=== PATIENT | male | born 1965 ===

== ENCOUNTER 2024-07-23 10:01 | Inpatient (IN) | payer BC ==
[~2024-07-23] VITALS: Ht 180.3 cm; Wt 100.0 kg
[2024-07-23 12:03] VITALS: BP 125/85
[2024-07-23] MEDS ORDERED: Ibuprofen 600 MG Tab PO PRN (13:10)
[2024-07-23] MEDS ORDERED: LORazepam 2 MG Tab PO PRN ×3 (13:10→13:15)
[2024-07-23] MEDS ORDERED: Haloperidol 5 MG Tab PO PRN ×2 (13:10→13:15)
[2024-07-23] MEDS ORDERED: Aluminum Hydroxide 320MG/5ML 473 ML PO PRN (13:10)
[2024-07-23] MEDS ORDERED: FLU VACC TS2024-25(6MOS UP)/PF 45 MCG/0.5 ML SYRINGE IM ONE (13:15)
[2024-07-23] MEDS ORDERED: Acetaminophen 325 MG TABLET PO PRN (13:15)
[2024-07-23] MEDS ORDERED: TraZODone HCl 50 MG Tab PO PRN (13:15)
[2024-07-23] MEDS ORDERED: RisperiDONE 1 MG Tab PO PRN (13:15)
[2024-07-23] MEDS ORDERED: LAMO100 PO (13:43)
[2024-07-23] MEDS ORDERED: QUET100 PO (13:44)
[2024-07-23] MEDS ORDERED: SERT50 PO (13:44)
--- NOTE | 2024-07-23 13:46 | NUR ---
ADMIT: PT ARRIVED TO [facility] VIA SECURE TRANSPORT FROM [facility] IN [facility] [place]. ALERT, ORIENTED AND COOPERATIVE. DENIES SI, HI OR AVH. PT STATES "I HAD BEHAVIORS CONSIDERED TO BE DANGEROUS, IT WAS A REACTION TO STRESS WITH MY FAMILY". 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 STATES THAT WHAT HAPPENED TO LEAD TO COMING TO HOSPITAL IS FOGGY. STATES THAT IT STARTED AFTER HAVING INCREASED STRESS WITHIN HIS FAMILY. STATES THAT HE WAS TO SEPERATE FROM THEM AND HAS A PLAN TO DO SO. 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 REPORTS HISTORY OF BIPLOR BUT STATES THAT HE HAS NOT BEEN TAKING MEDS RECENTLY. MED LIST UPDATED PER PT IN [facility]. STATES HX OF A-FIB, STATES THAT HIS DRUM LOADER AND UNLOADER TOLD HIM HE DOES NOT NEED MEDICATION FOR IT.
--- NOTE | 2024-07-23 18:21 | NUR ---
SHIFT SUMMARY: PT ALERT, ORIENTED AND COOPERATIVE. COMPLIANT WITH CARE. DENIES SI, HI OR AVH. PT ENGAGED IN DEPT MILIEU AND VISIBLE ON UNIT.
[2024-07-23 19:51] VITALS: BP 107/77
[2024-07-23] MEDS ORDERED: QUEtiapine Fumarate 100 MG Tab PO SCH (21:00)
[2024-07-23 22:05] VITALS: BP 107/77
--- NOTE | 2024-07-24 01:00 | NUR ---
Patient sleeping, no noted behaviors or issues.
--- NOTE | 2024-07-24 04:00 | NUR ---
ASSUMED CARE FROM PRIOR SHIFT. PATIENT IS A/OX4, ABLE TO VOICE NEEDS AND HAVE MEANINGFUL CONVERSATION. HE TELLS ME HE IS "GLAD TO BE HERE", HE LET HIS FAMILY "DRIVE HIM TO THE EDGE" AND HE IS GLAD TO HAVE "A BREAK FROM THEM". HE CURRENTLY DENIES ANY SI, VH AND AH. HE WAS VISITING WITH WITH OTHER STAFF AND PATIENTS AT THE BEGINNING OF SHIFT. HE IS COMPLIANT WITH MEDICATIONS, ASSESSMENT AND CARE. HE GOES TO BED WITHOUT ENCOURAGEMENT. HE SLEEPS THROUGH THE NIGHT WITHOUT BEHAVIORS OR ISSUES. WE WILL CONTINUE TO MONINTOR EVERY 15 MINUTES FOR SAFETY.
[2024-07-24 08:04] VITALS: BP 127/90
[2024-07-24] MEDS ORDERED: LamoTRIgine 100 MG Tab PO SCH (09:00)
--- NOTE | 2024-07-24 17:47 | NUR ---
SHIFT SUMMARY: PT ALERT, ORIENTED AND COOPERATIVE. DENIED SI, HI AND AVH. COMPLIANT WITH MEDICATIONS. PT PRESENT ON THE UNIT AND ENGAGED IN DEPT MILIEU. BANDAID TO WOUND ON L ANKLE CHANGED. NO S/S OF INFECTION.
[2024-07-24 20:29] VITALS: BP 137/89
--- NOTE | 2024-07-25 04:18 | NUR ---
PATIENT WAS PACING IN THE HALLWAY AT THE BEGINNING OF THE SHIFT. HE STATED "I FEEL LIKE MICE ARE RUNNING AROUND IN MY HEAD" BUT DECLINED OFFER OF PRN FOR ANXIETY. HE APPROACHED STAFF MANY TIMES DURING THIS SHIFT. HE DID NOT WANT TO WATCH THE MOVIE IN THE GROUP ROOM, STATING "IT FEELS LIKE i COULD GET IN TROUBLE. IT FEELS LIKE STATUTORY RAPE." HE WAS CONCERNED ABOUT HIS MOTHER, HE DOES NOT KNOW, PER PATIENT, IF SHE IS AWARE OF HIS LOCATION. HE WROTE IN HIS JOURNAL AND WANTS THE SW TO SPEAK TO HIM THURSDAY REGARDING HIS JOURNAL ENTRY AND GETTING AHOLD OF HIS MOTHER. HE WAS PLEASANT AND COOPERATIVE WITH CARES, WITH UNDERLYING ANXIETY AND PARANOIA. HE HAD A HARD TIME GOING TO SLEEP, PER PATIENT, AND KEPT GETTING UP TO DISCUSS HIS CONCERNS. HE DID AGREE, AFTER A TIME, TO TRY ATIVAN, WHICH ENDED UP BEING EFFECTIVE AFTER AN HOUR. HE THEN WAS IN BED RESTING QUIETLY WITH EYES CLOSED AND RESPIRATIONS CONFIRMED. HE HAD NO S/SX SUICIDAL IDEATION. HE STATED, "i REALLY LIKE IT HERE".
--- NOTE | 2024-07-25 07:52 | NUR ---
WOUND CARE ABRASION TO R ANKLE NOTED IN ERROR A PRESSURE ULCER BY THIS RN IN INITIAL ADMIT ASSESSMENT. PT SHOWERED THIS AM, ABRAISION ASSESSED. NOT S/S OF INFECTION, NEW BANDAIDS APPLIED TO AREA. PT TOLERATED WELL.
[2024-07-25 08:14] VITALS: BP 119/76
--- NOTE | 2024-07-25 13:54 | NUR ---
PCI, [facility] INFORMATION: THIS RN SPOKE WITH JANNETTE THE PCI IN CHARGE OF PATIENTS CASE IN [facility]. UPDATED ON SITUATION LEADING TO HOSPITALIZATION. STATES THAT THEY WERE INITIALLY CALLED TO TALK TO PT EARLY ON 07/21. STATES THAT PT REFUSED TO SPEAK WITH THEM AT THAT TIME. STATES THAT [place] AND WAS PUSHING PEOPLE, WHICH LEAD TO HIM BEING TAKEN TO THE HOSPITAL. STATES THAT HE WAS REFERRING TO ANOTHER BEING NAMED RACHELLE WHO WAS TELLING HIM TO DO THINGS. STATES THAT PT TOLD THEM THAT IF RACHELLE TOLD HIM TO HARM SOMEONE HE WASN'T SURE IF WOULD BE ABLE TO STOP. 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 EXPRESSED FAMILY CONCERN R/T HIS MOTHER HAVING A LARGE HEMATOMA ON HER HEAD THAT WAS NOTED AFTER THE DISAGREEMENT WITH MEMBER. STATES THAT SHE TOLD THE POLICE THAT SHE STACKING WOOD WAS HIT BY A PIECE OF WOOD. SHE CONFIRMED THAT PT WORKED FOR THE [employer], HAS INCOME AND BENIFITS THROUGH THERE. PT IS SCHEDULED FOR A HEARING ON 07/28 AT 1330. [facility] SCHEDULES THESE AT THE TIME A HOLD IS PLACED. SHE PROVIDED CONTACT INFORMATION FOR PT'S ENCC WORKER WHO WILL BE THE PERSON ASSISTING WITH A SAFE DISCHARGE PLAN. SHE IS GOING TO SPEAK WITH HIS CM TO FIND OUT IF HE IS LIVING IN HIS BOAT, SHE WAS UNDERSTANDING THAT HE LIVES WITH HIS MOTHER. DISCUSSED THAT PT HAS EXPRESSED THAT HE DOES NOT WANT TO HAVE CONTACT WITH HIS FAMILY. PCI: JANNETTE, [facility]: MARLEN CARLIN,
--- NOTE | 2024-07-25 17:43 | NUR ---
SHIFT SUMMARY: PT ALERT, ORIENTED AND COOPERATIVE. COMPLIANT WITH MEDICATIONS. DENIES SI, HI OR AVH. HAS BEEN VISIBLE ON THE UNIT, ENGAGED IN AM GROUP BUT DECLINED AFTERNOON GROUPS.
[2024-07-25 23:31] VITALS: BP 115/87
--- NOTE | 2024-07-25 23:52 | NUR ---
ALAN VISIBLE ON UNIT SPENDING TIME IN DAYROOM WATCHING TELEVISION AND PACING DELGADO. PT A&O X 4, APPEARS WELL GROOMED, TANGENTIAL, CALM. TOOK HS MEDS ORDERED. DENIED SI/HI/AVTH AND PAIN. STATED HE IS KEEPING A JOURNAL WITH ALL OF HIS STEPS TO IMPROVE HIS LIFE. AT 2330 PT CAME UP TO NS STATING HE CANNOT HAVE A ROOMMATE IN A VERY DEMANDING MANNER. PT APPEARED TO BE IRRITABLE, AGITATED, AND ABLE TO BE REDIRECTED. PT INFORMED THAT HE WOULD NOT BE GETTING A ROOMMATE TONIGHT BUT IT WAS NOT A GUARANTEE HE WOULD NOT HAVE ONE DURING HIS STAY HERE. PT REQUESTED TO INTERVIEW POTENTIAL ROOMMATES TO ENSURE THEY ARE COMPATIBLE. PT STATED "IF THEY ARE NOT BAD THINGS WILL HAPPEN." MASS SCORE 5. PRN ATIVAN GIVEN ORDERED ALONG WITH TRAZODONE. PT RETURNED TO ROOM AND IS CURRENTLY RESTING EYES OPEN IN BED IN [facility]. SAFETY MEASURES MAINTAINED VIA Q15 MIN CHECKS.
--- NOTE | 2024-07-26 05:04 | NUR ---
PT SLEPT ALL SHIFT AND IS CURRENTLY STILL IN BED APPEARING TO BE ASLEEP, CHEST RISING IN NAD. SAFETY MEASURES MAINTAINED VIA Q15 MIN CHECKS.
--- NOTE | 2024-07-26 07:46 | NUR ---
PT AT NURSES STATION. DISCUSSED THAT HE WOULD LIKE START WORKING ON A PLAN FOR WHEN HE IS DISCHARGED. HE WOULD LIKE TO BE ABLE TO GET HIS PHONE, KEYS AND WALLET FROM HIS MOM'S HOUSE. 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 PT AREEABLE TO BEING CONNECTED WITH THEM WHILE HERE IN ORDER TO START WORKING ON SAFE DISCHARGE PLAN..
[2024-07-26 08:21] VITALS: BP 109/72
--- NOTE | 2024-07-26 16:58 | NUR ---
SHIFT SUMMARY: PT ALERT, ORIENTED AND COOPERATIVE WITH CARE. COMPLIANT WITH MEDICATIONS AND PLAN OF CARE. PT DENIES SI, HI OR AVH. PT HAS PARTICIPATED IN GROUPS AND HAS BEEN ACTIVE IN UNIT MILIEU.
[2024-07-26] MEDS ORDERED: QUEtiapine Fumarate 200 MG Tab PO SCH (21:00)
[2024-07-26 21:37] VITALS: BP 128/75
--- NOTE | 2024-07-27 04:21 | NUR ---
PATIENT AWAKE IN MILIEU TALKING WITH PEERS AT BEGINNING OF SHIFT. HE HAD A SNACK WITH PEERS, AND TOOK EVENING MEDICATIONS. HE WENT TO BED, BUT WAS UP A FEW TIMES DURING THE NIGHT, PACING IN THE HALLWAY AND ASKING ABOUT HIS "BOAT IN [place]". HE KEPT ASKING DIFFERENT STAFF TO LOOK UP THE BOAT ON A [employer] WEBSITE. HE DENIED SI/HI AND HAD NO S/SX SUICIDAL IDEATION. HE REMAINED WATCHFUL NEW PEER ARRIVED ON UNIT, MAKING IT CLEAR HE DID NOT INTEND TO SHARE A ROOM.
--- NOTE | 2024-07-27 18:18 | NUR ---
SHIFT SUMMARY PT AxOx4. PLEASANT AND COOPERATIVE WITH CARE. PT DENIES SI/HI AND AVD TODAY. PT REPORTED POOR/RESTLESS SLEEP LAST NIGHT THAT'S "NEGATIVELY AFFECTING HIS MOOD" THIS AM. PT WAS HYPERFOCUSED ON DISCHARGE PLANS THIS AM, TALKING EXCESSIVELY ABOUT HIS BOAT, HIS ADMISSION STATUS AND REFLECTION ON WHAT LED HIM TO THIS ADMISSION. PT COMMUNICATION CAME ACROSS WITH INTENSE TONE THIS AM, BUT HE DID APPEAR TO RELAX MORE LATER IN THE DAY AFTER MEETING WITH CURB SETTER HELPER AND SPEAKING WITH PROVIDER. PT IS FOLLOWING TX PLAN INCLUDING TAKING MEDS, ATTENDING GROUPS AND MINGLING WITH PEERS/STAFF T/O THE DAY. PT IS CURRENTLY SITTING IN GROUP ROOM PLAYING CARDS WITH OTHERS. DENIES ANY NEEDS AT THIS TIME.
[2024-07-27 20:04] VITALS: BP 124/98
[2024-07-27] MEDS ORDERED: QUEtiapine Fumarate 200 MG Tab PO SCH (21:00)
[2024-07-27 22:01] VITALS: BP 99/70
--- NOTE | 2024-07-28 06:00 | NUR ---
Patient spent the evening coloring and socializing with peers. He was cooperative with assessment. He took his medication without issue but commented I hope he increased my med, he said he was going to double it.. . He denied new concerns at this time. He is able to make his needs known. Plan of care ongoing. He appeared to sleep for 8 hours.
[2024-07-28 08:04] VITALS: BP 127/93
--- NOTE | 2024-07-28 18:08 | NUR ---
SHIFT LEIFARRY PT AA&OX4. PT COMPLIANT WITH CARE. EYE CONTACT IS OVER DIRECT WITH PT LOOKING DOWN AFTER. SPEECH IS HURRIED. PT MOOD IS ELEVATED. HE IS FOCUSED ON DISCHARGE HOME. HE DENIES SI, AVH. HE DOES APPEAR TO BE RESPONDING TO INTERNAL STIMULI AT TIMES. HE IS EASILY REDIRECTABLE. HE HAS BEEN UP TO MEALS AND GROUP. HE HAS NO QUESTIONS OR CONCERNS AT THIS TIME.
[2024-07-28 20:58] VITALS: BP 146/87
--- NOTE | 2024-07-29 05:31 | NUR ---
Patient spent most of the evening watching TV and socializing with peers. He was cooperative with assessment. He took his medication without issue. He denied new concerns at this time. He is able to make needs known. Plan of care ongoing. He approached the nurses station at 2210 to check the time and again at 2320. When approached by staff after the second time, he endorsed that he was starting to become agitated and was agreeable to PRN medication. He requested to speak with this RN privately around 0020 and spoke for 5 minutes about how it would be better for him to not be around his mother and sisters, how he had been in contact with a friend who was letting other friends know that he was safe, and that the friend was also going to be looking into the situation with his boat to ensure that it was safe. After the talk, he spent 45 minutes pacing the hallway to burn off some anxiety and attempt to calm down. He was offered PRN medication but declined at that time explaining that he was getting calmer and that he would be returning to bed shortly. He appeared to be sleeping for 7 hours.
[2024-07-29] MEDS ORDERED: OLANZapine 10 MG Tab PO ONE (10:45)
--- NOTE | 2024-07-29 16:58 | NUR ---
Pt is A&O, calm, cooperative, eye contact is good. Pt reports his mood as depressed, but affect is not congruent to reported mood. He rates his depression as 10/10w and anxiety as 8/10w. Pt does appear anxious and restless. Pt denies SI, HI< and hallucinations. Pt relates his stay to being "trapped in a box." He also stated "if I can relieve the stress on the outside, I'll sessong the sign and symptom on the inside. I just need more time," referring to his stay in [facility]. Provider submitted a new order for olanzapine 20mg qhs with a now-dose of olanzapine 10mg, which was given around 1115. Pt was active on the milieu, attending groups, making phone calls, and walking the hallway. staff continues to monitor for safety and wellness.
[2024-07-29 19:38] VITALS: BP 107/75
[2024-07-29] MEDS ORDERED: OLANZapine 10 MG Tab PO SCH (21:00)
--- NOTE | 2024-07-30 05:03 | NUR ---
ALAN IN DAYROOM WATCHING TELEVISION WITH PEERS AND STAFF AND SHIFT. DENIED SI/HI/AVTH AND PAIN. PT STARTED ON OLANZAPINE 20 MG THIS SHIFT AND PT TOOK WITHOUT ISSUE. MEDICATION EDUCATION ALSO PROVIDED. PT DID NOT HAVE ANY NOTICEABLE BEHAVIORS THIS SHIFT AND WAS CALM, COOPERATIVE WITH ALL CARE. PT WAS NOT NOTED TO BE PACING, HAVE RACING THOUGHTS, OR COMPLAINTS OF ANXIETY. PER REPORT, PT WAS OBSERVED HAVING THESE BEHAVIORS. PT DID AWAKE A FEW TIMES DURING THE NIGHT TO CHECK THE TIME AND RETURNED TO ROOM AND APPEARED TO FALL BACK ASLEEP. SAFETY MEASURED MAINTAINED VIA Q15 MINUTE CHECKS.
[2024-07-30 06:34] LABS: CHOL/HDL RATIO 1.5; Cholesterol 93 mg/dL (50-200); HDL Cholesterol 64 mg/dL (>39); LDL/HDL RATIO 0.2; Low Density Lipoprotein Chol 15 mg/dL (0-110); Triglycerides 68 mg/dL (30-160); Very Low Density Lipoprot Chol 13 mg/dL (6-32)
[2024-07-30 08:15] VITALS: BP 93/73
[2024-07-30 14:06] LABS: Albumin, Blood 3.2 g/dL (3.4-5.0); Albumin/Globulin Ratio 0.9 (0.8-1.8); Bilirubin, Total 0.5 mg/dL (0.1-1.0); Bun/Creatinine Ratio 18.2 (12.0-20.0); Calcium, Blood 8.9 mg/dL (8.5-10.1); Creatinine, Blood 1.1 mg/dL (0.60-1.20); Globulin, Blood 3.5 g/dL (2.2-4.0); Potassium, Blood 4.3 mmol/L (3.5-5.5); Thyroid Stimulating Hormone 1.83 uIU/mL (0.360-4.800); Total Protein, Blood 6.7 g/dL (6.4-8.2)
--- NOTE | 2024-07-30 17:59 | NUR ---
SHIFT SUMMARY PT A/O X4; PLEASANT AND COOPERATIVE WITH CARE. PT DENIES SI, HI, OR ANY HALLUCINATIONS. HE HAS BEEN PATICIPATING IN MILEU ACTIVITES AND OFTEN JOURNALS OR COLORS. PT OFTEN COMES UP TO THE CONCRETE FOREMAN TO TALK AND SOMETIMES CAN PERSEVERATE ON CERTAIN TOPICS.
[2024-07-30 20:18] VITALS: BP 125/79
[2024-07-30 20:19] VITALS: BP 125/79
[2024-07-30 20:36] VITALS: BP 125/79
--- NOTE | 2024-07-30 23:16 | NUR ---
ALAN IN DAYROOM WATCHING TELEVISION WITH PEERS AND STAFF AND SHIFT. DENIED SI/HI/AVTH AND PAIN. PT TOOK HS MEDICATIONS ORDERED. PT WAS CALM, COOPERATIVE WITH ALL CARE. NO PSYCHOMOTOR AGITATION OBSERVED THIS SHIFT. PT IS CURRENTLY IN BED RESTING, CHEST RISING IN NAD. SAFETY MEASURES MAINTAINED VIA Q15 MINUTE CHECKS.
--- NOTE | 2024-07-31 04:13 | NUR ---
ASSUMED CARE FROM PRIOR NURSE. PATIENT SLEEPING MOST OF THE EVENING. HE DOES WAKE AROUND 4AM. HE PACES THE FLOORS SEVERAL TIMES. RN ASKS IF HE NEEDS ANYTHING, PATIENT STATES "I JUST WANT TO WALK FOR A WHILE". ENCOURAGED HIM TO ASK IF HE NEEDED ANYTHING. WE WILL CONTINUE TO MONITOR.
--- NOTE | 2024-07-31 04:40 | NUR ---
PATIENT IS HERE ON A VOLUNTARY STATUS. HE IS REQUESTING TO BE DISCHARGED ON THURSDAY THE . I HAVE ENCOURAGED HIM TO SPEAK WITH THE DOCTOR AND AIRPORT OPERATIONS CREW MEMBER TO ASSIST IN FACILITATING A SAFE DISCHARGE. HE IS AGREEABLE TO THIS PLAN OF CARE.
--- NOTE | 2024-07-31 06:10 | NUR ---
PATIENT BACK TO SLEEP AROUND 530. NO NOTED BEHAVIORS OR ISSUES.
[2024-07-31 08:03] VITALS: BP 100/77
--- NOTE | 2024-07-31 18:11 | NUR ---
SHIFT SUMMARY PT A/O X4; PLEASANT AND COOPERATIVE WITH CARE. HE DENIES SI, HI, OR ANY HALLUCINATIONS. HE HAS BEEN PARTICIPATING IN [facility] ACTIVITIES AND HAS BEEN DRAWING/COLORING FOR THE MAJORITY OF THE SHIFT. HE STARTS ON LITHIUM TONIGHT. PT IS AGREEABLE TO POSSIBLY DISCHARGING ON THURSDAY. MONITORED VIA Q15 CHECKS. NO NEW NEEDS AT THIS TIME.
[2024-07-31 20:02] VITALS: BP 121/82
[2024-07-31] MEDS ORDERED: Lithium Carbonate 300 MG TabCR PO SCH (21:00)
--- NOTE | 2024-08-01 05:29 | NUR ---
Patient spent most of the evening watching TV with peers. They were cooperative with assessment. They took their HS medication without issue. They denied any symptoms at this time. They are able to make their needs known. Plan of care ongoing. They appeared to be sleeping for 9 hours.
--- NOTE | 2024-08-01 17:36 | NUR ---
SHIFT SUMMARY Pt is A&O, calm, cooperative, eye contact is good. Pt stated that his mood is, "anxious, sad, but hopeful," affect is somewhat constricted. Pt denies SI, HI, and hallucinations. He stated that his depression "depends on the situation...same thing for anxiety." Pt denies current pain. He sated that he didn't really like the lithium and felt that it disturbed his sleep. Pt is thinking a lot about post-discharge and said that he needs to "avoid triggers" in order to stay grounded. Per staff report, pt appeared to respond to internal stimuli while shaving. [place] has been in contact with [employer] to arrange for pt to orange picking supervisor his property and pt was very appreciative of this. Pt active on the milieu throughout the day. Staff continues to monitor for safety and wellness.
[2024-08-01 19:55] VITALS: BP 127/75
[2024-08-01] MEDS ORDERED: Lithium Carbonate 300 MG TabCR PO SCH (21:00)
--- NOTE | 2024-08-02 05:59 | NUR ---
Patient spent most of the night watching TV. They were cooperative with assessment. They took their scheduled mediation and PRN acetaminophen without issue. They complained of a headache but denied other concerns at this time. They are able to make their needs known. Plan of care ongoing. They approached the nurses station at 2330 and began a rambling talk about their plans post-discharge. They expressed that they were going to focus on themself and their care while allowing their mother and sister to manage themselves. They also spoke of the psychiatrist they saw in 2019, who has since retired, who apparently did not know how to diagnose a patient so had to contact the patient's father to determine the appropriate diagnosis. They expressed a desire to return to seeing Dr Benoit Solano out of [place] as he was the doctor who was instrumental in the patient being approved for a diversion program in [place] when they were facing their first set of felony charges. They then commented that they had had a good night's sleep and were looking forward to their discharge. They then returned to his room. They again approached the nurse s station at 0330 and, in a very groggy manner, explained that they should not be operating machinery at that time. As they were walking back to their room, they were mumbling inaudibly. They appeared to be sleeping in their room for 8 hours throughout the night.
[2024-08-02 08:13] VITALS: BP 100/75
[2024-08-02] MEDS ORDERED: LITH300ER PO (11:49)
[2024-08-02] MEDS ORDERED: OLAN20 MM (11:50)
[2024-08-02 15:50] LABS: Lithium 0.23 mmol/L (0.60-1.20)
--- NOTE | 2024-08-02 17:05 | NUR ---
Pt Discharge Information Pt will be discharging tmw at 9am a taxi will be arriving from [facility] to pick pt up to take back to [place]. Follow up apt with Dr Damon has been inputed into Discharge. is referring pt to outpatient behavioral Health at [facility] in [place]. Pt will be arriving at [employer] [facility] where his vehicle and personal items will be awaiting his retrieval.
--- NOTE | 2024-08-02 17:27 | NUR ---
SHIFT SUMMARY PT A/O X4; PLEASANT AND COOPERATIVE WITH CARE. HE DENIES SI, HI, OR ANY HALLUCINATIONS. HE PARTICIPATES IN ALL GROUPS AND MILEU ACTIVITIES. HE IS TO DISCHARGE HOME TOMORROW MORNING. HE IS TO GO TO THE GEOGRAPHIC INFORMATION SYSTEM SURVEYOR'S OFFICE BEFORE HOME. MEDICATIONS FAXED TO [facility] IN [place]. PT MONITORED VIA Q15 CHECKS. NO NEW NEEDS AT THIS TIME.
--- NOTE | 2024-08-03 04:51 | NUR ---
ALAN IN DAYROOM COLORING AT START OF SHIFT. DENIED SI/HI/AVTH AND PAIN UPON ASSESSMENT. PT REPORTED HE IS READY TO BE DISCHARGED IN THE AM AND IS LOOKING FORWARD TO GETTING BACK TO HIS BOAT. PT TOOK HS MEDICATIONS ORDERED. PT WAS CALM, COOPERATIVE WITH ALL CARE. NO PSYCHOMOTOR AGITATION OBSERVED THIS SHIFT. PT APPEARED TO SLEEP ALL SHIFT ONLY AWAKENING FOR A SHORT WHILE DURING THE NIGHT. SAFETY MEASURES MAINTAINED VIA Q15 MINUTE CHECKS.
[2024-08-03 08:10] VITALS: BP 114/83
--- NOTE | 2024-08-03 09:14 | NUR ---
DISCHARGE NOTE PT A/O X4; PLEASANT AND COOPERATIVE WITH CARE. PT DENIES SI, HI, OR ANY HALLUCINATIONS. PT IS OPTIMISTIC ABOUT DISCHARGE. PT EDUCATED ON FOLLOW UP APPOINTMENTS AND REFERRALS. MEDICATIONS FAXED TO [facility] IN [place]. PT EDUCATED ON HOW TO OBTAIN MEDICAL RECORDS AND PT EXHIBITED UNDERSTANDING. NO VALUABLES BROUGHT IN WITH PATIENT UPON ADMISSION, SO NO VALUABLES RETURNED. PT GIVEN CLOTHES TO DISCHARGE HOME IN. PT DISCHARGED VIA TAXI BACK TO [facility]. PT TO STOP AT THE APPLICATION OPERATIONS ENGINEER'S OFFICE PRIOR TO GOING HOME.
== END 2024-08-03 09:15 | disposition home or self-care (01) | DRG 885 ==
LOC: BHU 10:01
PROVIDERS: Student in an Organized Health Care Education/Training Program; ADMIT Psychiatry & Neurology Psychiatry
DX: F30.2 Manic episode, severe with psychotic symptoms (principal)
CPT/HCPCS: 36415; 80053; 80061; 80178; 83036; 84443; A9270